=== PATIENT | female | born 2000 | race Caucasian/White ===

== ENCOUNTER 2023-10-20 13:48 | Emergency (ER) | payer MEDICAID ==
[~2023-10-20] VITALS: Ht 160 cm; Wt 61.0 kg
[2023-10-20 15:16] VITALS: O2SAT 100
[2023-10-20 15:25] LABS: BASOPHILS % 0.6 % (0.0-2.0); EOSINOPHILS % 0.5 % (0.0-5.0); HEMATOCRIT. 38.4 % (36.0-48.0); HEMOGLOBIN. 13.1 g/dL (12.0-16.0); MEAN CORPUSCULAR HEMOGLOBIN 32.4 pg (28.0-32.0); MEAN CORPUSCULAR HGB CONC 34.1 g/dL (31.0-37.0); MEAN CORPUSCULAR VOLUME 94.9 fL (81.0-99.0); MEAN PLATELET VOLUME 7.8 fl (7.4-10.4); MONOCYTES % 10.9 % (2.0-8.0); PLATELET 369 x1000/uL (130-400); RED BLOOD CELL COUNT 4.05 mill/uL (4.2-5.4); RED CELL DISTRIBUTION WIDTH 14.7 % (11.6-14.6); WHITE BLOOD COUNT 4.8 x1000/uL (4.5-11.0)
[2023-10-20 15:39] LABS: CLARITY URINE CLEAR (CLEAR); COLOR URINE YELLOW (YELLOW); GLUCOSE URINE NEGATIVE (NEGATIVE); KETONES URINE NEGATIVE (NEGATIVE); LEUKOCYTE ESTERASE URINE TRACE (NEGATIVE); NITRITE URINE NEGATIVE (NEGATIVE); OCCULT BLOOD URINE TRACE (NEGATIVE); PROTEIN URINE NEGATIVE (NEGATIVE); UROBILINOGEN URINE 0.2 E.U./dL (0.2-1.0)
[2023-10-20 15:42] LABS: ALANINE AMINOTRANSFERASE 19 IU/L (10-49); ALBUMIN 4.9 g/dL (3.2-4.8); ASPARTATE AMINOTRANSFERASE 35 IU/L (<34); BILIRUBIN TOTAL 0.6 mg/dL (0.1-1.0); CALCIUM 9.8 mg/dL (8.7-10.4); CARBON DIOXIDE 28 mEq/L (21-32); CHLORIDE 106 mEq/L (98-107); CREATININE 0.7 mg/dL (0.6-1.0); GLUCOSE 104 mg/dL (70-105); POTASSIUM 3.8 mEq/L (3.5-5.1); PROTEIN TOTAL 7.7 g/dL (6.0-8.3); SODIUM 141 mEq/L (136-145); UREA NITROGEN BLOOD 6 mg/dL (9-23)
[2023-10-20 15:44] LABS: HCG SCREEN POSITIVE
[2023-10-20 16:09] LABS: BACTERIA URINE TRACE; RBC URINE 0-2 /hpf (0-2); SQUAMOUS EPITHELIAL CELL URINE 1+ /lpf (RARE/1+); WBC URINE 0-2 /hpf (0-2)
[2023-10-20 16:56] VITALS: BP 119/90; PULSE 85; RESP 18; TEMP 98.6
== END 2023-10-20 17:01 | disposition home or self-care (01) ==
LOC: ER 13:48
DX: O26.891 Other specified pregnancy related conditions, first trimester (principal); Z3A.10 10 weeks gestation of pregnancy
CPT/HCPCS: 36415; 76830; 76856; 80053; 81003; 84702; 84703; 85025; 99284

== ENCOUNTER 2024-01-05 10:46 | Emergency (ER) | payer MEDICAID, OTHER ==
[~2024-01-05] VITALS: Ht 157.5 cm; Wt 61.0 kg
[2024-01-05 10:50] VITALS: O2SAT 100
[2024-01-05] MEDS: NALOXONE HCL 1MG/ML 2ML VIAL IV ONE ×4 (10:56→12:45)
[2024-01-05] MEDS: NALOXONE HCL 0.4MG/ML 1ML VIAL ONE (11:04)
[2024-01-05] MEDS: SODIUM CHLORIDE 0.9% 1,000 ML IV ONE (11:26)
[2024-01-05 11:59] LABS: HEMATOCRIT. 40.5 % (36.0-48.0); HEMOGLOBIN. 13.6 g/dL (12.0-16.0); MEAN CORPUSCULAR HEMOGLOBIN 31.8 pg (28.0-32.0); MEAN CORPUSCULAR HGB CONC 33.5 g/dL (31.0-37.0); MEAN PLATELET VOLUME 8.2 fl (7.4-10.4); PLATELET 292 x1000/uL (130-400); RED BLOOD CELL COUNT 4.26 mill/uL (4.2-5.4); RED CELL DISTRIBUTION WIDTH 15.3 % (11.6-14.6); WHITE BLOOD COUNT 6.2 x1000/uL (4.5-11.0)
[2024-01-05 12:03] LABS: CHLORIDE 106 mEq/L (98-107); POTASSIUM 3.6 mEq/L (3.5-5.1); SODIUM 140 mEq/L (136-145)
[2024-01-05 12:04] LABS: CALCIUM 9.7 mg/dL (8.7-10.4); CARBON DIOXIDE 28 mEq/L (21-32)
[2024-01-05 12:06] LABS: INR 0.9; PROTHROMBIN TIME 10.3 sec (9.6-11.0)
[2024-01-05 12:09] LABS: CREATININE 0.5 mg/dL (0.6-1.0); GLUCOSE 113 mg/dL (70-105); UREA NITROGEN BLOOD 5 mg/dL (9-23)
[2024-01-05 12:11] LABS: ACETAMINOPHEN < 2 ug/mL (10-30); CREATINE KINASE 111 IU/L (34-145)
[2024-01-05 12:13] LABS: HCG SCREEN NEGATIVE
[2024-01-05 12:14] LABS: DIFFERENTIAL COMMENT 1; THYROID STIMULATING HORMONE 0.94 uIU/mL (0.55-4.78)
[2024-01-05 12:50] LABS: BG BASE EXCESS -0.7 mmol/L (-2.0-2.0); BG DEOXYHEMOGLOBIN 0.3 % (0.0-5.0); BG FRACTION INSPIRED OXYGEN 44; BG HCO3 ACT 25.6 mmol/L (22.0-26.0); BG METHEMOGLOBIN 0.3 % (0.0-1.5); BG OXYGEN SATURATION 99.7 % (92.0-98.5); BG OXYHEMOGLOBIN 99.4 % (94.0-97.0); BG PH 7.336 (7.350-7.450); BG TOTAL HEMOGLOBIN 12.5 g/dL (12.0-18.0); BG VENT MODE NASAL CANNULA
[2024-01-05 12:54] LABS: TROPONIN I HIGH SENSITIVITY < 4 ng/L (3.0-34)
[2024-01-05 12:58] LABS: ETHANOL BLOOD 608 mg/dL (<10)
[2024-01-05 13:00] LABS: AMMONIA 53 uMol/L (<32)
[2024-01-05 13:03] LABS: PLATELET ESTIMATE NORMAL
[2024-01-05 13:44] LABS: CLARITY URINE CLEAR (CLEAR); COLOR URINE YELLOW (YELLOW); GLUCOSE URINE NEGATIVE (NEGATIVE); KETONES URINE NEGATIVE (NEGATIVE); LEUKOCYTE ESTERASE URINE NEGATIVE (NEGATIVE); NITRITE URINE NEGATIVE (NEGATIVE); OCCULT BLOOD URINE 2+ (NEGATIVE); PROTEIN URINE NEGATIVE (NEGATIVE); SPECIFIC GRAVITY URINE 1.004 (1.005-1.030); UROBILINOGEN URINE 0.2 E.U./dL (0.2-1.0)
[2024-01-05 13:55] VITALS: BP 138/88; PULSE 96; RESP 18; TEMP 98.7
[2024-01-05 13:58] LABS: *AMPHETAMINES SCREEN URINE NEGATIVE (NEGATIVE); *BENZODIAZEPINES SCREEN URINE NEGATIVE (NEGATIVE); BACTERIA URINE 1+; RBC URINE 0-2 /hpf (0-2); SQUAMOUS EPITHELIAL CELL URINE 2+ /lpf (RARE/1+); WBC URINE 0-2 /hpf (0-2); YEAST URINE NONE SEEN
[2024-01-05 13:59] LABS: *BARBITURATES SCREEN URINE NEGATIVE (NEGATIVE); *COCAINE SCREEN URINE NEGATIVE (NEGATIVE); CANNABINOID URINE SCREEN NEGATIVE (NEGATIVE); ECSTASY MDMA SCREEN URINE NEGATIVE (NEGATIVE); METHADONE URINE SCREEN NEGATIVE (NEGATIVE); OPIATES URINE SCREEN NEGATIVE (NEGATIVE); PHENCYCLIDINE URINE SCREEN NEGATIVE (NEGATIVE)
== END 2024-01-05 14:48 | disposition home or self-care (01) ==
LOC: ER 10:46 → EDBEDREQ 11:26 → ER 14:48 → CANBEDREQ 14:57
DX: F10.129 Alcohol abuse with intoxication, unspecified (principal); R41.82 Altered mental status, unspecified; Y90.8 Blood alcohol level of 240 mg/100 ml or more
CPT/HCPCS: 80305; 80048; 81003; 80307; 80329; 80320; 82140; 82550; 82962; 84703; 83605; 83690; 84443; 85025; 85610; 86850; 86900; 86901; 84484; 36415; 71045; 70450; 82805; 82375; 93005; 96361; 96374; 99285; 36600; J2310 ×2; J7030; G0480

== ENCOUNTER 2024-01-22 14:07 | Emergency (ER) | payer OTHER ==
[~2024-01-22] VITALS: Ht 162.6 cm; Wt 61.0 kg
[2024-01-22 14:09] VITALS: O2SAT 99
[2024-01-22 14:47] LABS: BASOPHILS % 0.8 % (0.0-2.0); EOSINOPHILS % 0.2 % (0.0-5.0); HEMATOCRIT. 37.7 % (36.0-48.0); HEMOGLOBIN. 12.7 g/dL (12.0-16.0); LYMPHOCYTES % 19.2 % (20.0-50.0); MEAN CORPUSCULAR HEMOGLOBIN 31.7 pg (28.0-32.0); MEAN CORPUSCULAR HGB CONC 33.7 g/dL (31.0-37.0); MEAN PLATELET VOLUME 7.2 fl (7.4-10.4); MONOCYTES % 14.8 % (2.0-8.0); PLATELET 377 x1000/uL (130-400); RED BLOOD CELL COUNT 4.01 mill/uL (4.2-5.4); WHITE BLOOD COUNT 5.8 x1000/uL (4.5-11.0)
[2024-01-22] MEDS: ONDANSETRON 4MG ODT PO ONE (14:51)
[2024-01-22 14:55] LABS: CHLORIDE 100 mEq/L (98-107); POTASSIUM 3.7 mEq/L (3.5-5.1); SODIUM 137 mEq/L (136-145)
[2024-01-22 14:56] LABS: CALCIUM 9.6 mg/dL (8.7-10.4); CARBON DIOXIDE 25 mEq/L (21-32)
[2024-01-22 14:59] LABS: HCG SCREEN NEGATIVE
[2024-01-22 15:01] LABS: CREATININE 0.6 mg/dL (0.6-1.0); GLUCOSE 78 mg/dL (70-105); UREA NITROGEN BLOOD 10 mg/dL (9-23)
[2024-01-22 15:02] LABS: ETHANOL BLOOD 300 mg/dL (<10)
[2024-01-22 15:03] LABS: ACETAMINOPHEN < 2 ug/mL (10-30); ALANINE AMINOTRANSFERASE 42 IU/L (10-49); ALBUMIN 4.8 g/dL (3.2-4.8); ASPARTATE AMINOTRANSFERASE 66 IU/L (<34); BILIRUBIN TOTAL 0.4 mg/dL (0.1-1.0); PROTEIN TOTAL 7.9 g/dL (6.0-8.3)
[2024-01-22] MEDS: SODIUM CHLORIDE 0.9% 1,000 ML IV ONE (15:54)
[2024-01-22] MEDS: ONDANSETRON HCL 4MG/2ML INJ IV ONE (15:54)
[2024-01-22 17:20] LABS: *AMPHETAMINES SCREEN URINE NEGATIVE (NEGATIVE); *BARBITURATES SCREEN URINE NEGATIVE (NEGATIVE); *BENZODIAZEPINES SCREEN URINE NEGATIVE (NEGATIVE); *COCAINE SCREEN URINE NEGATIVE (NEGATIVE)
[2024-01-22 17:21] LABS: CANNABINOID URINE SCREEN NEGATIVE (NEGATIVE); ECSTASY MDMA SCREEN URINE NEGATIVE (NEGATIVE); METHADONE URINE SCREEN NEGATIVE (NEGATIVE); OPIATES URINE SCREEN NEGATIVE (NEGATIVE); PHENCYCLIDINE URINE SCREEN NEGATIVE (NEGATIVE)
[2024-01-22 18:19] VITALS: BP 121/74; PULSE 98; RESP 15; TEMP 97
== END 2024-01-22 18:21 | disposition home or self-care (01) ==
LOC: ER 14:07
DX: F10.129 Alcohol abuse with intoxication, unspecified (principal); I49.9 Cardiac arrhythmia, unspecified; Y90.8 Blood alcohol level of 240 mg/100 ml or more
CPT/HCPCS: 80053; 80305; 80307; 80329; 80320; 84703; 85025; 36415; 93005; 96361; 96374; 99284; Q0162; J2405; J7030; Z7610; G0480

== ENCOUNTER 2024-01-23 17:46 | Emergency (ER) | payer OTHER ==
[~2024-01-23] VITALS: Ht 167.6 cm; Wt 65.0 kg
[2024-01-23 17:48] VITALS: O2SAT 97
[2024-01-23] MEDS: SODIUM CHLORIDE 0.9% 1,000 ML IV ONE (18:48)
[2024-01-23] MEDS: NALOXONE HCL 1MG/ML 2ML VIAL IV ONE (18:48)
[2024-01-23 18:49] LABS: BASOPHILS % 1.4 % (0.0-2.0); EOSINOPHILS % 0.7 % (0.0-5.0); HEMATOCRIT. 34.8 % (36.0-48.0); HEMOGLOBIN. 11.5 g/dL (12.0-16.0); LYMPHOCYTES % 39.1 % (20.0-50.0); MEAN CORPUSCULAR HEMOGLOBIN 31.7 pg (28.0-32.0); MEAN CORPUSCULAR HGB CONC 33.1 g/dL (31.0-37.0); MEAN CORPUSCULAR VOLUME 95.7 fL (81.0-99.0); MEAN PLATELET VOLUME 7.5 fl (7.4-10.4); MONOCYTES % 12.9 % (2.0-8.0); NEUTROPHILS % 45.9 % (40.0-76.0); PLATELET 355 x1000/uL (130-400); RED BLOOD CELL COUNT 3.64 mill/uL (4.2-5.4); RED CELL DISTRIBUTION WIDTH 15.9 % (11.6-14.6); WHITE BLOOD COUNT 4.7 x1000/uL (4.5-11.0)
[2024-01-23 18:54] LABS: CARBON DIOXIDE 27 mEq/L (21-32); CHLORIDE 105 mEq/L (98-107); POTASSIUM 3.7 mEq/L (3.5-5.1); SODIUM 142 mEq/L (136-145)
[2024-01-23 18:55] LABS: CALCIUM 8.6 mg/dL (8.7-10.4)
[2024-01-23 18:59] LABS: CREATININE 0.7 mg/dL (0.6-1.0); GLUCOSE 89 mg/dL (70-105)
[2024-01-23 19:00] LABS: UREA NITROGEN BLOOD 9 mg/dL (9-23)
[2024-01-23 19:18] LABS: HCG SCREEN NEGATIVE
[2024-01-23 19:21] LABS: ETHANOL BLOOD 587 mg/dL (<10)
[2024-01-23] MEDS ORDERED: SODIUM CHLORIDE 0.9% 1,000 ML IV ONE (20:30)
[2024-01-23 20:39] LABS: CLARITY URINE CLEAR (CLEAR); COLOR URINE YELLOW (YELLOW); GLUCOSE URINE NEGATIVE (NEGATIVE); KETONES URINE TRACE (NEGATIVE); LEUKOCYTE ESTERASE URINE NEGATIVE (NEGATIVE); NITRITE URINE NEGATIVE (NEGATIVE); OCCULT BLOOD URINE NEGATIVE (NEGATIVE); PH URINE 5.5 (4.5-8.0); PROTEIN URINE NEGATIVE (NEGATIVE); SPECIFIC GRAVITY URINE 1.009 (1.005-1.030); UROBILINOGEN URINE 0.2 E.U./dL (0.2-1.0)
[2024-01-23 20:40] LABS: *AMPHETAMINES SCREEN URINE NEGATIVE (NEGATIVE); *BARBITURATES SCREEN URINE NEGATIVE (NEGATIVE); *BENZODIAZEPINES SCREEN URINE NEGATIVE (NEGATIVE); *COCAINE SCREEN URINE NEGATIVE (NEGATIVE); METHADONE URINE SCREEN NEGATIVE (NEGATIVE); OPIATES URINE SCREEN NEGATIVE (NEGATIVE); PHENCYCLIDINE URINE SCREEN NEGATIVE (NEGATIVE)
[2024-01-23 20:41] LABS: CANNABINOID URINE SCREEN NEGATIVE (NEGATIVE); ECSTASY MDMA SCREEN URINE NEGATIVE (NEGATIVE)
[2024-01-23] MEDS ORDERED: ONDANSETRON HCL 4MG/2ML INJ IV ONE (20:45)
[2024-01-23] MEDS ORDERED: PANTOPRAZOLE SODIUM 40 MG/VIAL IV SCH (20:45)
[2024-01-23 22:56] VITALS: BP 124/82; PULSE 85; RESP 16; TEMP 98.5
== END 2024-01-23 22:29 | disposition left against medical advice (07) ==
LOC: ER 17:46 → CANBEDREQ 23:03
DX: R41.82 Altered mental status, unspecified (principal); F10.129 Alcohol abuse with intoxication, unspecified; Y90.8 Blood alcohol level of 240 mg/100 ml or more
CPT/HCPCS: 80305; 80048; 81003; 80320; 84703; 85025; 36415; 70450; 96361; 96374; 99285; J2310; J7030; G0480

== ENCOUNTER 2024-07-17 20:30 | Emergency (ER) | payer OTHER ==
[~2024-07-17] VITALS: Ht 160 cm; Wt 66.0 kg
[2024-07-17 20:40] VITALS: O2SAT 98
[2024-07-17 21:04] VITALS: BP 110/72; PULSE 90; RESP 16; TEMP 37.00296; O2SAT 98
[2024-07-17 21:16] LABS: HEMATOCRIT. 37.1 % (36.0-48.0); HEMOGLOBIN. 12.2 g/dL (12.0-16.0); MEAN CORPUSCULAR HEMOGLOBIN 34.1 pg (28.0-32.0); MEAN CORPUSCULAR HGB CONC 32.8 g/dL (31.0-37.0); MEAN PLATELET VOLUME 9.6 fl (7.4-10.4); PLATELET 180 x1000/uL (130-400); RED BLOOD CELL COUNT 3.57 mill/uL (4.2-5.4); RED CELL DISTRIBUTION WIDTH 15.7 % (11.6-14.6); WHITE BLOOD COUNT 3.7 x1000/uL (4.5-11.0)
[2024-07-17 21:18] LABS: CHLORIDE 101 mEq/L (98-107); POTASSIUM 4.2 mEq/L (3.5-5.1); SODIUM 137 mEq/L (136-145)
[2024-07-17 21:19] LABS: CALCIUM 9.8 mg/dL (8.7-10.4); CARBON DIOXIDE 22 mEq/L (21-32)
[2024-07-17 21:22] LABS: DIFFERENTIAL COMMENT 1
[2024-07-17 21:24] LABS: CREATININE 0.6 mg/dL (0.6-1.0); GLUCOSE 80 mg/dL (70-105)
[2024-07-17 21:25] LABS: ETHANOL BLOOD 32 mg/dL (<10); HCG SCREEN NEGATIVE
[2024-07-17 21:27] LABS: UREA NITROGEN BLOOD < 5 mg/dL (9-23)
[2024-07-17 21:36] LABS: PLATELET ESTIMATE NORMAL
[2024-07-17 21:37] LABS: ANISOCYTOSIS 1+
[2024-07-18] MEDS ORDERED: ONDA4TAB50 MT (05:01)
== END 2024-07-17 23:45 | disposition home or self-care (01) ==
LOC: ER 20:30
DX: R56.9 Unspecified convulsions (principal)
CPT/HCPCS: 36415; 80048; 80320; 84703; 85025; 93005; 99284; G0480

== ENCOUNTER 2024-07-18 00:36 | Emergency (ER) | payer OTHER ==
[~2024-07-18] VITALS: Ht 162.6 cm; Wt 64.0 kg
[2024-07-18 00:39] VITALS: TEMP 98.5; O2SAT 98
[2024-07-18 01:30] VITALS: BP 128/67; PULSE 79
[2024-07-18 02:54] LABS: CHLORIDE 98 mEq/L (98-107); SODIUM 136 mEq/L (136-145)
[2024-07-18 02:55] LABS: CALCIUM 10.5 mg/dL (8.7-10.4); CARBON DIOXIDE 27 mEq/L (21-32)
[2024-07-18 03:00] LABS: CREATININE 0.6 mg/dL (0.6-1.0); GLUCOSE 106 mg/dL (70-105)
[2024-07-18 03:35] VITALS: RESP 16; O2SAT 98
[2024-07-18 03:37] LABS: BASOPHILS % 0.6 % (0.0-2.0); DIFFERENTIAL COMMENT 0; EOSINOPHILS % 0.3 % (0.0-5.0); HEMATOCRIT. 39.4 % (36.0-48.0); HEMOGLOBIN. 13.1 g/dL (12.0-16.0); LYMPHOCYTES % 11.2 % (20.0-50.0); MEAN CORPUSCULAR HEMOGLOBIN 34.3 pg (28.0-32.0); MEAN CORPUSCULAR HGB CONC 33.3 g/dL (31.0-37.0); MEAN PLATELET VOLUME 9.4 fl (7.4-10.4); MONOCYTES % 13.4 % (2.0-8.0); NEUTROPHILS % 74.5 % (40.0-76.0); PLATELET 193 x1000/uL (130-400); RED BLOOD CELL COUNT 3.82 mill/uL (4.2-5.4); RED CELL DISTRIBUTION WIDTH 15.5 % (11.6-14.6)
[2024-07-18] MEDS: SODIUM CHLORIDE 0.9% 1,000 ML IV ONE (03:37)
[2024-07-18] MEDS: ONDANSETRON HCL 4MG/2ML INJ IV NR (03:37)
[2024-07-18] MEDS: ONDANSETRON HCL 4MG/2ML INJ IV STA (03:37)
[2024-07-18 03:40] LABS: HCG SCREEN NEGATIVE
[2024-07-18 03:53] LABS: ETHANOL BLOOD < 10 mg/dL (<10); UREA NITROGEN BLOOD < 5 mg/dL (9-23)
[2024-07-18 03:53] LABS: CLARITY URINE TURBID (CLEAR); COLOR URINE YELLOW (YELLOW); GLUCOSE URINE NEGATIVE (NEGATIVE); KETONES URINE TRACE (NEGATIVE); LEUKOCYTE ESTERASE URINE TRACE (NEGATIVE); NITRITE URINE NEGATIVE (NEGATIVE); OCCULT BLOOD URINE NEGATIVE (NEGATIVE); PROTEIN URINE 2+ (NEGATIVE)
[2024-07-18 04:05] LABS: *AMPHETAMINES SCREEN URINE NEGATIVE (NEGATIVE); *BARBITURATES SCREEN URINE NEGATIVE (NEGATIVE); *BENZODIAZEPINES SCREEN URINE NEGATIVE (NEGATIVE); *COCAINE SCREEN URINE NEGATIVE (NEGATIVE); CANNABINOID URINE SCREEN PRESUMPTIVE POSITIVE (NEGATIVE); ECSTASY MDMA SCREEN URINE NEGATIVE (NEGATIVE); METHADONE URINE SCREEN NEGATIVE (NEGATIVE); OPIATES URINE SCREEN NEGATIVE (NEGATIVE); PHENCYCLIDINE URINE SCREEN NEGATIVE (NEGATIVE)
[2024-07-18] MEDS ORDERED: ONDA4TAB50 MT (05:01)
[2024-07-18 05:27] LABS: SQUAMOUS EPITHELIAL CELL URINE 1+ /lpf (RARE/1+)
[2024-07-18 05:29] LABS: AMORPHOUS SEDIMENT URINE 1+ /lpf; BACTERIA URINE TRACE; RBC URINE NONE SEEN /hpf (0-2); WBC URINE 0-2 /hpf (0-2)
== END 2024-07-18 05:18 | disposition home or self-care (01) ==
LOC: ER 00:36
DX: F10.229 Alcohol dependence with intoxication, unspecified (principal); R11.2 Nausea with vomiting, unspecified; Y90.9 Presence of alcohol in blood, level not specified
CPT/HCPCS: 80305; 80048; 81003; 80320; 84703; 85025; 36415; 96361; 96374; 99283; J2405; J7030; G0480